=== PATIENT | male | born 1985 | race Caucasian/White ===

== ENCOUNTER 2022-02-06 17:31 | Emergency (ER) | payer MEDICAID ==
[~2022-02-06] VITALS: Ht 162.6 cm; Wt 63.5 kg
--- NOTE | 2022-02-06 17:36 | NUR ---
TO ER BED 4, C/O CHEST PAIN SINCE 1499, AAOX3, BREATHING EVEN AND NON LABORED, CONNECTED TO MONITOR, AWAITING MD LANDIS
[2022-02-06] MEDS ORDERED: IBUPROFEN 600 MG TABLET PO ONE (18:00)
[2022-02-06] MEDS ORDERED: IBUPROFEN 600 MG TABLET ONE (18:20)
[2022-02-06 18:55] VITALS: BP 136/98
--- NOTE | 2022-02-06 18:55 | NUR ---
Patient discharged to home in stable condition. Written and verbal after care instructions given. Patient verbalizes understanding of instruction.
== END 2022-02-06 18:56 | disposition home or self-care (01) ==
LOC: ER 17:36
DX: R07.89 Other chest pain (principal)
CPT/HCPCS: 71045-TC

== ENCOUNTER 2022-02-06 21:18 | Inpatient (IN) | payer MEDICAID ==
[~2022-02-06] VITALS: Ht 160 cm; Wt 68.0 kg
--- NOTE | 2022-02-06 21:47 | NUR ---
PER POISON CONTROL MONITOR 4-[address] AND LOW BP BASIC LABS MENTAL STATUS
[2022-02-06] MEDS ORDERED: ONDANSETRON HCL/PF 4 MG/2 ML VIAL IV ONE (22:00)
[2022-02-06 22:11] LABS: BASOPHILS % (AUTO) 0.4 % (0.0-2.0); EOSINOPHILS % (AUTO) 1.9 % (0.0-6.0); HEMATOCRIT 43 % (39-51); HEMOGLOBIN 14.5 g/dL (13.5-17.5); LYMPHOCYTES # (AUTO) 2.4 K/uL (0.8-4.8); LYMPHOCYTES % (AUTO) 24.6 % (20.0-44.0); MEAN CORPUSCULAR HGB CONC 33 g/dl (31.0-36.0); MEAN CORPUSCULAR VOLUME 90 fL (80-96); NEUTROPHILS # (AUTO) 6.2 K/uL (1.8-8.9); NEUTROPHILS % (AUTO) 63.1 % (43.0-81.0); PLATELET COUNT (AUTO) 229 K/uL (150-450); RED BLOOD CELL COUNT(AUTO) 4.82 MIL/uL (4.5-6.0); WHITE BLOOD COUNT (AUTO) 9.8 K/uL (4.3-11.0)
[2022-02-06] MEDS ORDERED: ONDANSETRON HCL/PF 4 MG/2 ML VIAL ONE (22:12)
[2022-02-06] MEDS ORDERED: LORAZEPAM INJ 2 MG/ML VIAL ONE (22:16)
[2022-02-06 22:24] LABS: ALANINE AMINOTRANSFERASE 55 U/L (12-78); ALBUMIN 4.1 g/dL (3.4-5.0); ALCOHOL, BLOOD < 3 mg/dL (0-0); ALKALINE PHOSPHATASE 146 U/L (46-116); ASPARTATE AMINOTRANSFERASE 30 U/L (15-37); BILIRUBIN,DIRECT 0.1 mg/dL (0.0-0.2); BILIRUBIN,TOTAL 0.2 mg/dL (0.2-1.0); CALCIUM, SERUM 9.3 mg/dL (8.5-10.1); CARBON DIOXIDE 26 mmol/L (21-32); CHLORIDE 102 mmol/L (98-107); CREATININE 1.5 mg/dL (0.6-1.3); GLUCOSE 150 mg/dL (74-106); POTASSIUM 3.6 mmol/L (3.5-5.1); SODIUM SERUM 140 mmol/L (136-145); TOTAL PROTEIN, SERUM 8.1 g/dL (6.4-8.2); UREA NITROGEN, BLOOD 15 mg/dL (7-18)
--- NOTE | 2022-02-06 22:25 | NUR ---
COVID ANTIGEN SWAB COLLECTED AND SENT TO LAB
[2022-02-06 22:27] LABS: ACETAMINOPHEN 0 ug/ml (10-30)
[2022-02-06] MEDS ORDERED: LORAZEPAM INJ 2 MG/ML VIAL IV ONE ×2 (22:30)
[2022-02-06] MEDS ORDERED: IV NS 0.9% 1,000 ML BAG IV ONE (22:30)
--- NOTE | 2022-02-06 23:28 | NUR ---
EPIC PANEL PAGED
[2022-02-07] VITALS (14 sets, daily range): BP systolic 102–132; BP diastolic 52–83
[2022-02-07] MEDS ORDERED: LORAZEPAM INJ 2 MG/ML VIAL IV PRN (03:00)
[2022-02-07] MEDS ORDERED: ONDANSETRON HCL/PF 4 MG/2 ML VIAL IVP PRN (03:00)
[2022-02-07] MEDS: IV NS 0.9% 1,000 ML IV PRN ×3 (06:30→21:16)
--- NOTE | 2022-02-07 08:54 | NUR ---
REPORT GIVEN TO GÉNESIS VALADEZ FOR POLINA
--- NOTE | 2022-02-07 08:55 | NUR ---
PETROLOGY TEACHER AT BEDSIDE FOR BLOOD DRAW
--- NOTE | 2022-02-07 09:05 | NUR ---
WAITER/WAITRESS COUNTER NOTES RECEIVED PATIENT FROM ER 36Y/OLD MALE ON Dx OF DRUG OVERDOSE. PATIENT CONFUSED, TWITCHING EYES MUSCLES, UNABLE TO OPEN EYES, UNABLE TO VERBALIZE SELF, STARTED INFUSING NS@75ML/HR, PATIENT MOUTH IS VERY DRY, SKIN ASSESSMENT DONE INTACT. IV ACCESS ON LEFT AND RIGHT WRIST INTACT. T-98.8F, P-100, R-20, O2-92% WITH NC2L, BP-127/68. CHECKED PATIENT BELONGING, PATIENT UNABLE TO SIGN PAPERWORK BECAUSE OF CONDITION. SEEN HOSPITALIST Dr CANDELARIA, GET VERBAL ORDER PSYCH CONSULT, AND NOTIFY POISON CONTROL FOR DRUG OVERDOSE FOLLOW UP. ORDER TAKEN AND CARRIED OUT. CALL LIGHT WITHIN TO REACH, BED LACK, BED ALARM ON. SIDE RAILS X4 UP, SAFETY PRECAUTION MAINTAINING ALL THE TIME.
--- NOTE | 2022-02-07 09:23 | NUR ---
TRANSFERRED TO BED 113 IN STABLE CONDITION
[2022-02-07 09:26] LABS: CALCIUM, SERUM 8.4 mg/dL (8.5-10.1); CREATININE 1.1 mg/dL (0.6-1.3); MAGNESIUM 2.1 mg/dL (1.8-2.4); PHOSPHORUS 3.9 mg/dL (2.5-4.9); POTASSIUM 3.7 mmol/L (3.5-5.1)
[2022-02-07 10:00] LABS: BASOPHILS % (AUTO) 0.1 % (0.0-2.0); EOSINOPHILS % (AUTO) 0.4 % (0.0-6.0); HEMATOCRIT 42 % (39-51); HEMOGLOBIN 13.7 g/dL (13.5-17.5); LYMPHOCYTES # (AUTO) 0.6 K/uL (0.8-4.8); LYMPHOCYTES % (AUTO) 16.6 % (20.0-44.0); MEAN CORPUSCULAR HGB CONC 33 g/dl (31.0-36.0); MEAN CORPUSCULAR VOLUME 90 fL (80-96); MONOCYTES # (AUTO) 0.6 K/uL (0.1-1.30); MONOCYTES % (AUTO) 15.4 % (2.0-12.0); NEUTROPHILS # (AUTO) 2.6 K/uL (1.8-8.9); NEUTROPHILS % (AUTO) 67.5 % (43.0-81.0); PLATELET COUNT (AUTO) 146 K/uL (150-450); RED BLOOD CELL COUNT(AUTO) 4.63 MIL/uL (4.5-6.0); WHITE BLOOD COUNT (AUTO) 3.9 K/uL (4.3-11.0)
--- NOTE | 2022-02-07 10:00 | NUR ---
rn notes called poison control, spoken to the personnel Jorgito, no new order will call them if patient has and new signa adn symptoms.
--- NOTE | 2022-02-07 11:05 | NUR ---
rn notes seen patient via psychologist Dr Mello, new order is follow up.
[2022-02-07 13:56] LABS: BAND % (MANUAL) 6 % (0.0-5.0); EOSINOPHILS % (MANUAL) 5 % (0-4); LYMPHOCYTES % (MANUAL) 21 % (16-48); MONOCYTES % (MANUAL) 7 % (0-11.0); NEUTROPHILS % (MANUAL) 61 (42-76)
[2022-02-07] MEDS: ACETAMINOPHEN 325 MG TABLET PO PRN (14:25)
--- NOTE | 2022-02-07 14:26 | NUR ---
RN NOTES T--102.9F ADMINISTERED -TYLENOL 650 MG/ML, AND COOLING MEASURE. WILL FOLLOW UP.
--- NOTE | 2022-02-07 14:57 | NUR ---
RN NOTES PATIENT KEEP TRYING TO GET OUT OF BED, HIGH FALL RISK, GET ORDER VIA HOSPITALIST WRIST RESTRAIN. ORDER TAKEN AND CARRIED OUT.
--- NOTE | 2022-02-07 15:42 | NUR ---
RN NOTES PATIENT VERY ANXIOUS, CONFUSED, HARD TO FOLLOW DIRECTION, REMOVING TUBING, AND TRYING TO GET OUT OF BED, HIGH FALL RISK ADMINISTERED ATIVAN 2 MG/ML IV PUSH, BP 120/58, T-103F, P- 123, O2-86%.
--- NOTE | 2022-02-07 15:56 | NUR ---
PATIENT CONFUSED, HARD TO FOLLOW DIRECTION, GET VERBAL ORDER 1:1 SITTER.
--- NOTE | 2022-02-07 17:10 | NUR ---
rn notes put simple face mask on 8l O2- 81% to 84%, unable to urinate inserted benavides catheter, t-102.2 f, get order blood culture x2 per Dr Recinos. patient stil confused. will monitoring.
--- NOTE | 2022-02-07 17:57 | NUR ---
rn notes patient o2-81% to 86% with simple face mask , changed to the non- rebreather mask, and get order of stat ABG.
--- NOTE | 2022-02-07 18:17 | NUR ---
RN NOTES PATIENT T-102.2 F, UNABLE TO URINATE SINCE THIS MORNING INSERTED BEDOYA CATHETER OUTPUT WAS 800ML. O2-81/84% APPLIED PATIENT NON- REBREATHER MASK, AND STAT ABG .
--- NOTE | 2022-02-07 18:27 | NUR ---
RN NOTES ABG RESULT NOTIFIED DR CASTRO AND GET NEW ORDER TO TRANSFER PATIENT ICU FOR CLOSE MONITORING , START ZOSYN 4,5 GM IV Q8HR, FIRST DOSE START NOW, REPEAT ABG AFTER 2 HR, AND GET STAT CHEST X-RAY. ORDER TAKEN AND CARRIED OUT.
--- NOTE | 2022-02-07 18:40 | NUR ---
rn notes transferred patient to the icu per Dr Cool's order on ACLS PROTOCOL. BEDSIDE REPORT GIVEN RN FOLLOW UP POLINA. NEW ORDERS TAKEN, AND CARRIED OUT.
[2022-02-07 18:49] LABS: ABG BASE EXCESS -2.6 mmol/L; ABG PCO2 30.8 mmHg (35.0-45.0); ABG PO2 56.1 mmHg (75.0-100.0); AaDO2 626.1 mmHg; COHb 0.5 % (0.5-1.5); MetHb 0.4 % (0.0-1.5); O2Hb 87.2 % (94.0-97.0); SITE, ABG Right Radial; VENT MODE, BG 15L NRB
--- NOTE | 2022-02-07 18:55 | NUR ---
rn notes called poison control and spoke personnel name Krystina. Notified patient change of condition, per personnel because of patient has gabapentin poisoning no specific recommendation at this time, follow up ICU, and call if some changes.
[2022-02-07 20:17] LABS: ABG BASE EXCESS -3.1 mmol/L; ABG OXYGEN SATURATION 88.1 % (92.0-98.5); ABG PCO2 33.7 mmHg (35.0-45.0); ABG PH 7.407 (7.350-7.450); ABG PO2 56.8 mmHg (75.0-100.0); AaDO2 622.5 mmHg; COHb 0.4 % (0.5-1.5); MetHb 0.3 % (0.0-1.5); O2Hb 87.5 % (94.0-97.0); SITE, ABG Right Radial; VENT MODE, BG 15LNRB
[2022-02-07] MEDS: PIPERACILLIN /TAZOBACTAM 4.5 G in IV D5W 50 ML IV SCH (21:10)
--- NOTE | 2022-02-07 21:45 | NUR ---
RN NOTE PT RESTLESS NOT FOLLOWING ANY COMMANDS. WITH YOLANDA WRIST RESTRAINTS WITH SITTER AT BEDSIDE. TEMP 102.2. PRECIOUS BOLIVAR CAME TO SEE PT.
[2022-02-07] MEDS: VANCOMYCIN 1 GM in IV D5W 250 ML IV SCH (21:54)
[2022-02-07] MEDS: ACETAMINOPHEN 650 MG/SUPP.RECT RC PRN (22:24)
--- NOTE | 2022-02-07 22:50 | NUR ---
RT placed on hhfnc due to low spo2 on nrb. sat 70-90%. abg done at 1930. spo2 on hhfnc 88-90%. placed on hhfnc + nrb. sat 94%. abg to follow
[2022-02-08] VITALS (82 sets, daily range): BP systolic 74–113; BP diastolic 48–73
[2022-02-08] MEDS: ENOXAPARIN SODIUM 40 MG/0.4 ML DISP.SYRIN SQ SCH ×2 (00:04→22:01)
[2022-02-08] MEDS ORDERED: PROPOFOL 100 ML IV PRN (01:00)
--- NOTE | 2022-02-08 01:00 | NUR ---
RN NOTE REPEAT ABG RESULTS RELAYED TO PRECIOUS BOLIVAR WITH ORDER TO INTUBATE PT. PT NOT IN DISTRESS. ER MD CAME, INTUBATED PT, RTS AT BEDSIDE, VENT SETTINGS AC 20 TV 550 FIO2 100% P 8. CXRAY DONE. WILL CONTINUE TO MONITOR.
--- NOTE | 2022-02-08 01:18 | NUR ---
RT pt intubated post abg results. intubated with ett size 7.5 at 23@lip. vent settings AC 20 550 100% +8. vent plugged in to red outlet. ambu bag at bedside. small pink tinged secretions suctioned via ett. lung sounds clear diminished throughout. abg to follow.
--- NOTE | 2022-02-08 02:40 | NUR ---
RN NOTE POST INTUBATION ABG RESULTS RELAYED TO PRECIOUS BOLIVAR. NO NEW ORDER MADE AT THIS TIME.
[2022-02-08] MEDS: PIPERACILLIN /TAZOBACTAM 4.5 G in IV D5W 50 ML IV SCH (04:44)
[2022-02-08] MEDS: PROPOFOL 100 ML IV PRN ×7 (04:45→21:14)
[2022-02-08 05:11] LABS: BASOPHILS % (AUTO) 0.2 % (0.0-2.0); EOSINOPHILS % (AUTO) 0.5 % (0.0-6.0); HEMATOCRIT 39 % (39-51); HEMOGLOBIN 12.9 g/dL (13.5-17.5); LYMPHOCYTES # (AUTO) 0.9 K/uL (0.8-4.8); LYMPHOCYTES % (AUTO) 16.8 % (20.0-44.0); MEAN CORPUSCULAR HGB CONC 33 g/dl (31.0-36.0); MEAN CORPUSCULAR VOLUME 89 fL (80-96); MONOCYTES # (AUTO) 0.1 K/uL (0.1-1.30); MONOCYTES % (AUTO) 2.8 % (2.0-12.0); NEUTROPHILS # (AUTO) 4.2 K/uL (1.8-8.9); NEUTROPHILS % (AUTO) 79.7 % (43.0-81.0); PLATELET COUNT (AUTO) 140 K/uL (150-450); RED BLOOD CELL COUNT(AUTO) 4.32 MIL/uL (4.5-6.0); WHITE BLOOD COUNT (AUTO) 5.3 K/uL (4.3-11.0)
[2022-02-08 05:32] LABS: CREATININE 1.1 mg/dL (0.6-1.3); MAGNESIUM 1.8 mg/dL (1.8-2.4); PHOSPHORUS 3.9 mg/dL (2.5-4.9); POTASSIUM 3.9 mmol/L (3.5-5.1)
--- NOTE | 2022-02-08 06:00 | NUR ---
RN NOTE PT CONTINUE WITH VENT SETTINGS AC 20 TV 550 FIO2 100% P 5. TACHYPNEIC, SEDATED WITH PROPOFOL, TITRATED PER PROTOCOL. OGT INSERTED BY CHARGE NURSE, AWAITING FOR XRAY RESULTS. BEDOYA DRAINING URINE BY GRAVITY, WILL CONTINUE TO MONITOR.
--- NOTE | 2022-02-08 07:05 | NUR ---
STRUCTURER OPENING NOTE: RECEIVED PT. IN BED, SEDATED, RESPONDS TO TACTILE AND PAINFUL STIMULI. ON VENT WITH ETT - 7.5/23; AC - 20; VT - 550; FIO2 - 100; PEEP - 8. CHEST RISING SYMMETRICALLY. TACHYPNEIC AT 36 BREATHS/MIN. PT. HAD NG TUBE, X-RAY SHOWS WRONG PLACEMENT, REMOVED. RECRUITER COORDINATOR READS SINUS TACH AT 112 BPM AT THIS TIME. ON BEDOYA CATH, WITH CLOUDY TEA-COLORED URINE NOTED, PLACED BELOW BLADDER. SKIN INTACT. IV ACCESS ON ALAN MIDLINE WITH NS RUNNING AT 75ML/HR; PROPOFOL AT 80MCG/KG/MIN; R HAND #18G AND L WRIST #18G, PATENT AND SALINE LOCKED. IV DRESSINGS C/D/I WITH NO S/S OF INFILTRATION. SAFETY MEASURES IN PLACE: BED IN LOWEST AND LOCKED POSITION, HOB ELEVATED AT 30 DEGREES, BED ALARM ON, ON SOFT BILATERAL WRIST RESTRAINTS, PALPABLE PULSES NOTED ON ALL EXTREMITIES AND CAP REFILL < 3 SECS.; CALL LIGHT WITHIN REACH, SIDE RAILS UPX3. WILL REPOSITION AT LEAST Q2H AND CONTINUE TO MONITOR FOR ANY CHANGES.
--- NOTE | 2022-02-08 07:10 | NUR ---
RN NOTE OGT NOT IN PLACE, REMOVED TUBE, ENDORSED TO AM SHIFT NURSE.
[2022-02-08] MEDS: IV NS 0.9% 1,000 ML IV PRN (07:26)
[2022-02-08] MEDS ORDERED: SUCCINYLCHOLINE CHLORIDE 20 MG/ML VIAL IV ONE (08:06)
[2022-02-08] MEDS ORDERED: ETOMIDATE 2 MG/ML VIAL IV ONE (08:06)
[2022-02-08 08:39] LABS: ABG BASE EXCESS -2.2 mmol/L; ABG OXYGEN SATURATION 77.3 % (92.0-98.5); ABG PCO2 35.1 mmHg (35.0-45.0); ABG PO2 42.7 mmHg (75.0-100.0); AaDO2 635.2 mmHg; COHb 0.5 % (0.5-1.5); MetHb 0.3 % (0.0-1.5); O2Hb 76.7 % (94.0-97.0); SITE, ABG Right Radial; VENT MODE, BG HFNC 100% 40L + NRB 15L
[2022-02-08 08:39] LABS: ABG BASE EXCESS -2.1 mmol/L; ABG OXYGEN SATURATION 83.8 % (92.0-98.5); ABG PCO2 36.4 mmHg (35.0-45.0); ABG PH 7.402 (7.350-7.450); ABG PO2 49.7 mmHg (75.0-100.0); AaDO2 626.9 mmHg; COHb 0.4 % (0.5-1.5); MetHb 0.3 % (0.0-1.5); O2Hb 83.2 % (94.0-97.0); PEEP,BG 8 cm H2O; SITE, ABG Left Radial
[2022-02-08 08:39] LABS: ABG BASE EXCESS -1.2 mmol/L; ABG OXYGEN SATURATION 86.9 % (92.0-98.5); ABG PCO2 34.5 mmHg (35.0-45.0); ABG PH 7.431 (7.350-7.450); ABG PO2 53.6 mmHg (75.0-100.0); AaDO2 624.9 mmHg; COHb 0.6 % (0.5-1.5); MetHb 0.1 % (0.0-1.5); O2Hb 86.3 % (94.0-97.0); SITE, ABG Left Radial; VENT MODE, BG AC 20 500 100% +8
[2022-02-08] MEDS: VANCOMYCIN 1 GM in IV D5W 250 ML IV SCH ×2 (09:30→20:43)
[2022-02-08 09:35] LABS: BAND % (MANUAL) 10 % (0.0-5.0); LYMPHOCYTES % (MANUAL) 18 % (16-48); MONOCYTES % (MANUAL) 7 % (0-11.0); NEUTROPHILS % (MANUAL) 65 (42-76)
[2022-02-08] MEDS: FENTANYL CITRAT IV 2,500 MCG in IV NS 0.9% 200 ML IV PRN (11:10)
[2022-02-08] MEDS ORDERED: MORPHINE SULFATE INJ 2 MG/ML DISP.SYRIN IV ONE (11:30)
--- NOTE | 2022-02-08 13:00 | NUR ---
HYDROGEN CELL TENDER NOTE: SPOKE WITH KRISTINE OF POISON CONTROL. SUGGESTED ORDERS WHEN REPEAT EKG RESULT IS OBTAINED. SUGGESTED ORDER: IF QTC > 500, ORDER 1-2 G OF MAGNESIUM IF QRS >120, ORDER SODIUM BICARB. IF QTC IS PROLONGED, GOAL FOR MAG LEVEL IS >2 AND POTASSIUM >4. WILL NOTIFY MD AND DYNAMITE PACKING MACHINE FEEDER RN.
[2022-02-08 13:22] LABS: ALBUMIN 2.3 g/dL (3.4-5.0); BILIRUBIN,DIRECT 0.1 mg/dL (0.0-0.2); BILIRUBIN,TOTAL 0.4 mg/dL (0.2-1.0); TOTAL PROTEIN, SERUM 5.6 g/dL (6.4-8.2)
[2022-02-08] MEDS: PIPERACILLIN /TAZOBACTAM 3.375 G in IV D5W 100 ML IV SCH ×2 (13:42→22:00)
--- NOTE | 2022-02-08 14:21 | NUR ---
vent changes below per dr. lowry: peep +16 reverse I:E ratio (2:1) Addendum: 02/08/22 at 1422 by JULISSA HEREDIA RT Amended: Links added.
--- NOTE | 2022-02-08 16:30 | NUR ---
FRAME COVERER NOTE: EDDIE Tanner OF [facility] CALLED TO REPORT THAT PT. IS POSITIVE FOR MRSA FROM THE RIGHT NARE. WILL IMPLEMENT CONTACT ISOLATION FROM NOW ON.
[2022-02-08] MEDS: ACETAMINOPHEN 650 MG/SUPP.RECT RC PRN (17:12)
--- NOTE | 2022-02-08 18:30 | NUR ---
ENTRY WRITER NOTE: SPOKE WITH PT.'S MOTHER. TYRESE ESPINOZA, PHONE , BASED IN [place]. UPDATED MOTHER ON PT.'S CONDITION AND GOT PT.'S MEDICAL HISTORY. CHART UPDATED. WAS TOLD THAT PT.'S LIST OF MEDICATIONS CAN BE OBTAINED FROM [facility], PHONE [phone] AND/OR [facility], PHONE . WILL ENDORSE TO MANAGER TRAINING RN AND MED RECON NURSE.
--- NOTE | 2022-02-08 19:20 | NUR ---
ROLL TUBE SETTER CLOSING NOTE: PT. REMAINS IN BED, SEDATED, RESPONDS TO TACTILE AND PAINFUL STIMULI. ON VENT WITH ETT - 7.5/23; AC - 20; VT - 500; FIO2 - 100; PEEP - 16; I:E RATIO AT 2:1. CHEST RISING SYMMETRICALLY, SATURATING AT 93% AT THIS TIME. NOW BREATHING AT 20 BREATHS/MIN. SCHOOL COMMUNITY RELATIONS COORDINATOR READS SINUS TACH AT 118 BPM AT THIS TIME. ON BEDOYA CATH, WITH CLOUDY TEA-COLORED URINE OUTPUT OF 525 ML THIS SHIFT. SKIN INTACT. IV ACCESS ON ALAN PICC LINE WITH NS RUNNING AT 75ML/HR; PROPOFOL AT 100 MCG/KG/MIN; FENTANYL AT 150 MCG/HR; R HAND #18G AND L WRIST #18G, PATENT AND SALINE LOCKED. IV DRESSINGS C/D/I WITH NO S/S OF INFILTRATION. PT.'S MOTHER, TYRESE ESPINOZA CALLED FOR UPDATES AND GAVE PT.'S MEDICAL HISTORY, CHART UPDATED. PT. SPIKED A FEVER AT 1600, TYLENOL SUPP GIVEN, FEVER WENT DOWN AND WENT UP AGAIN AT 1900. COOLING MEASURES APPLIED. SAFETY MEASURES MAINTAINED: BED IN LOWEST AND LOCKED POSITION, HOB ELEVATED AT 30 DEGREES, BED ALARM ON, ON SOFT BILATERAL WRIST RESTRAINTS, PALPABLE PULSES NOTED ON ALL EXTREMITIES AND CAP REFILL < 3 SECS.; CALL LIGHT WITHIN REACH, SIDE RAILS UPX3. REPOSITIONED AT LEAST Q2H AND ENDORSED CONTINUITY OF CARE TO RIVER RAT RN.
[2022-02-08] MEDS ORDERED: NOREPINEPHRINE 8MG/250ML RTU 250 ML IV ONE (19:35)
[2022-02-08] MEDS: NOREPINEPHRINE 8 MG in IV NS 0.9% 242 ML IV PRN (19:40)
--- NOTE | 2022-02-08 20:00 | NUR ---
RN NOTE RECEIVED PT ORALLY INTUBATED CONNECTED TO VENT. NO SIGNS OF DISTRESS NOTED. LEVOPHED STARTED DUE TO LOW BP, WILL TITRATE PER PROTOCOL. SEDATED ON PROPOFOL AND FENTANYL. DRIPS INFUSING WELL, PICC LINE PATENT AND INTACT. FC DRAINING URINE BY GRAVITY. WILL CONTINUE TO MONITOR.
[2022-02-08 22:14] LABS: ABG BASE EXCESS -2.1 mmol/L; ABG OXYGEN SATURATION 75.8 % (92.0-98.5); ABG PCO2 45.6 mmHg (35.0-45.0); ABG PH 7.338 (7.350-7.450); ABG PO2 44.1 mmHg (75.0-100.0); AaDO2 623.3 mmHg; MetHb 0.2 % (0.0-1.5); O2Hb 75.6 % (94.0-97.0); SITE, ABG Right Radial; VENT MODE, BG AC 20 500 +12 100%
--- NOTE | 2022-02-08 22:45 | NUR ---
RN NOTE PT POSITIVE WITH MRSA NARES. NOTIFIED FREIGHT CLAIM INVESTIGATOR KATT WITH NEW ORDER OF BACTROBAN OINTMENT. ORDER NOTED AND CARRIED OUT.
--- NOTE | 2022-02-08 23:20 | NUR ---
RT NOTE SPUTUM OBTAINED. SMALL WHITE THIN SECRETIONS NOTED.
[2022-02-09] VITALS (93 sets, daily range): BP systolic 80–129; BP diastolic 36–79
[2022-02-09] MEDS: IV NS 0.9% 1,000 ML IV PRN ×2 (00:16→12:05)
[2022-02-09] MEDS: PROPOFOL 100 ML IV PRN ×9 (00:16→22:25)
[2022-02-09] MEDS ORDERED: NOREPINEPHRINE 8MG/250ML RTU 250 ML IV ONE (01:19)
[2022-02-09] MEDS: NOREPINEPHRINE 8 MG in IV NS 0.9% 242 ML IV PRN ×2 (01:45→05:15)
[2022-02-09] MEDS: FENTANYL CITRAT IV 2,500 MCG in IV NS 0.9% 200 ML IV PRN (02:43)
[2022-02-09] MEDS ORDERED: NOREPINEPHRINE 4 MG/4 ML AMPUL IV ONE (04:38)
[2022-02-09] MEDS: PIPERACILLIN /TAZOBACTAM 3.375 G in IV D5W 100 ML IV SCH ×3 (04:42→20:30)
[2022-02-09 05:28] LABS: CALCIUM, SERUM 8.3 mg/dL (8.5-10.1); CREATININE 1.5 mg/dL (0.6-1.3); POTASSIUM 4.7 mmol/L (3.5-5.1)
--- NOTE | 2022-02-09 07:15 | NUR ---
RN NOTE PT CONTINUE WITH VENT SETTINGS. NOT IN DISTRESS. REMAIN SEDATED WITH FENTANY AND PROPOFOL. LEVOPHED AT 0.4 MCG/KG/MIN. NS AT 75ML.HR. NO SIGNS OF INFILTRATION NOTED. BEDOYA CATH IN PLACE AND DRAINING WELL. LOW GRADE FEVER ON SHIFT.
--- NOTE | 2022-02-09 07:35 | NUR ---
ICU/RN PT RECEIVED IN BED, SEDATED. PT INTUBATED ON MECHANICAL VENTILATOR 7.5/23, AC 20, TV 500, PEEP OF 16 AND FIO2 100%, SAT 98% ON BEDSIDE MONITOR. RIGHT UA PICC, RIGHT HAND 18G AND LEFT WRIST 18G IN PLACE RUNNING NS AT 75ML/HR, LEVOPHED AT 0.4MCG/KG/MIN, PROPOFOL AT 90MCG/KG/MIN AND FENTANYL AT 100 MCG/HR. BP 99/56, RR 21 AND HR 101. BED LOCKED AND IN LOWEST POSITION, CALL LIGHT WITHIN REACH, 3 SIDE RAILS UP.
--- NOTE | 2022-02-09 08:36 | NUR ---
vent changes below per dr. lowry: vt 525 ml rate 30 bpm rn notified on above changes Addendum: 02/09/22 at 0837 by JULISSA HEREDIA RT Amended: Links added.
[2022-02-09] MEDS: MUPIROCIN OINT 2% 22 GM TUBE NS SCH ×2 (09:00→20:32)
[2022-02-09 09:05] LABS: ABG BASE EXCESS -6.1 mmol/L; ABG PCO2 80.1 mmHg (35.0-45.0); ABG PH 7.112 (7.350-7.450); ABG PO2 94.1 mmHg (75.0-100.0); AaDO2 538.8 mmHg; COHb 0.3 % (0.5-1.5); MetHb 0.3 % (0.0-1.5); O2Hb 95.4 % (94.0-97.0); PEEP,BG 16 cm H2O; SITE, ABG Right Brachial; VT, ABG 500 mL
[2022-02-09] MEDS: VANCOMYCIN 1 GM in IV D5W 250 ML IV SCH ×2 (09:05→20:19)
[2022-02-09 09:07] LABS: BASOPHILS % (AUTO) 0.2 % (0.0-2.0); EOSINOPHILS % (AUTO) 1.5 % (0.0-6.0); HEMATOCRIT 39 % (39-51); HEMOGLOBIN 12.9 g/dL (13.5-17.5); LYMPHOCYTES # (AUTO) 0.8 K/uL (0.8-4.8); LYMPHOCYTES % (AUTO) 8.9 % (20.0-44.0); MEAN CORPUSCULAR HGB CONC 33 g/dl (31.0-36.0); MEAN CORPUSCULAR VOLUME 91 fL (80-96); MONOCYTES # (AUTO) 0.1 K/uL (0.1-1.30); MONOCYTES % (AUTO) 1.6 % (2.0-12.0); NEUTROPHILS % (AUTO) 87.8 % (43.0-81.0); PLATELET COUNT (AUTO) 154 K/uL (150-450); WHITE BLOOD COUNT (AUTO) 9.2 K/uL (4.3-11.0)
[2022-02-09] MEDS ORDERED: IV NS 0.9% 500 ML IV ONE (09:30)
[2022-02-09 09:45] LABS: BILIRUBIN,TOTAL 0.5 mg/dL (0.2-1.0); CALCIUM, SERUM 8.3 mg/dL (8.5-10.1); CREATININE 1.5 mg/dL (0.6-1.3); POTASSIUM 5.1 mmol/L (3.5-5.1); TOTAL PROTEIN, SERUM 5.9 g/dL (6.4-8.2)
--- NOTE | 2022-02-09 10:05 | NUR ---
fio2 titration due to 98% spo2 80% fio2 Addendum: 02/09/22 at 1006 by JULISSA HEREDIA RT Amended: Links added.
[2022-02-09] MEDS: NOREPINEPHRINE 32 MG in IV NS 0.9% 242 ML IV PRN (10:52)
--- NOTE | 2022-02-09 11:00 | NUR ---
ICU/RN NGT PLACED IN LEFT NARE, 60CM READING AT THE TIP OF THE NOSE. AWAITING FOR CXR TO CONFIRM PLACEMENT.
--- NOTE | 2022-02-09 11:36 | NUR ---
ICU/RN UPDATED PT'S FATHER SUAD ([phone]) ON PT'S CONDITION
[2022-02-09 12:01] LABS: ABG BASE EXCESS -4.2 mmol/L; ABG OXYGEN SATURATION 96.6 % (92.0-98.5); ABG PCO2 63.6 mmHg (35.0-45.0); ABG PH 7.208 (7.350-7.450); ABG PO2 91.4 mmHg (75.0-100.0); COHb 0.3 % (0.5-1.5); MetHb 0.3 % (0.0-1.5); PEEP,BG 16 cm H2O; SITE, ABG Right Brachial; VT, ABG 525 mL
[2022-02-09] MEDS: JEVITY 1.2 CAL 1,000 ML BOTTLE GT PRN (13:55)
--- NOTE | 2022-02-09 15:16 | NUR ---
ICU/RN PT'S MOTHER TYRESE ([phone]) AT BEDSIDE, UPDATED ON PT'S CONDITION. TYRESE CONFIRMED SHE IS NEXT OF KIN, NO SPOUSE OR CHILDREN OVER THE AGE OF 18 TO MAKE DECISION FOR PT.
--- NOTE | 2022-02-09 15:19 | NUR ---
ICU/RN PT'S MOTHER MENTIONS PT HAD A PRESCRIPTION FOR SEROQUEL, VERBALIZES SHE BELIEVES IT COULD BE A REASON FOR HIS OVERDOSE.
[2022-02-09] MEDS: ACETAMINOPHEN 325 MG TABLET PO PRN (16:12)
--- NOTE | 2022-02-09 16:21 | NUR ---
ICU/RN TEMP OF 100.9. COOLING MEASURES IMPLEMENTED, TYLENOL GIVEN.
--- NOTE | 2022-02-09 19:10 | NUR ---
MULTIGRAPHER NOTES PATIENT RECEIVED ON BED, SEDATED, INTUBATED, SIZE 7.5 AND 23 CM BY THE LIP. ON MECHANICAL VENTILATOR WITH SETTING AC- 30, TV- 525, FIO2- 80%, PEEP- 16 SATING AT 99%, RECEIVED WITH TEMPERATURE 101.2 FAHRENHEIT, COOLING MEASURE PROVIDED. V/S TAKEN AND RECORDED. WITH ALAN PICC LINE, RIGHT HAND # 18, LEFT ERIST # 18 PERIPHERAL LINE, PATENT AND INTACT, FLUSHED WITH NS, RUNNING WITH NS @ 75 ML/HR, PROPOFOL @ 90 MCG/KG/MIN, LEVO @ 0.4 MCG/KG/MIN, FENTANYL @ 100 MCG/HR. NGT @ LEFT NARE, PATENT AND INTACT, VERIFIED PLACEMENT BY AUSCULTATION, NOTED WITH 5ML RESIDUAL UPON ASPIRATION, FLUSHED WITH WATER. RUNNING WITH JEVITY 1.2 @ 20 ML/HR. BEDOYA CATHETER PATENT AND INTACT, DRAINING CLEAR YELLOW URINE VIA GRAVITY. NOTED WITH BILATERAL SOFT WRIST RESTRAINT, RELEASE AND REASSESS Q2HRS, FOR CIRCULATION. ALL SAFETY PRECAUTION PROVIDED. BED IN LOWEST PROSITION, LOCKED. CALL LIGHT WITH IN REACH. CONTINUE TO MONITOR
[2022-02-09] MEDS: IV NS 0.9% 250 ML IV PRN (20:55)
[2022-02-09] MEDS: ENOXAPARIN SODIUM 40 MG/0.4 ML DISP.SYRIN SQ SCH (21:00)
[2022-02-10] VITALS (92 sets, daily range): BP systolic 88–131; BP diastolic 33–72
[2022-02-10] MEDS: ACETAMINOPHEN 325 MG TABLET PO PRN (00:08)
--- NOTE | 2022-02-10 00:11 | NUR ---
RN NOTES PATIENT NOTED WITH TEMPERATURE 100.6 F, COOLING MEASURE PROVIDED, ACETAMINOPHEN 650MG GIVEN, CONTINUE TO MONITOR.
--- NOTE | 2022-02-10 00:45 | NUR ---
RN NOTES TEMPERATURE RECHECKED AND OBTAINED 100.1 F, CONTINUE COOLING MEASURE. CONTINUE TO MONITOR.
[2022-02-10] MEDS: PROPOFOL 100 ML IV PRN ×6 (03:06→18:52)
[2022-02-10] MEDS: IV NS 0.9% 1,000 ML IV PRN ×2 (03:17→16:00)
[2022-02-10] MEDS: PIPERACILLIN /TAZOBACTAM 3.375 G in IV D5W 100 ML IV SCH ×3 (04:48→22:00)
[2022-02-10] MEDS: FENTANYL CITRAT IV 2,500 MCG in IV NS 0.9% 200 ML IV PRN (05:25)
[2022-02-10] MEDS ORDERED: NOREPINEPHRINE 4 MG/4 ML AMPUL IV ONE (05:27)
[2022-02-10] MEDS: NOREPINEPHRINE 32 MG in IV NS 0.9% 242 ML IV PRN (05:38)
[2022-02-10 05:46] LABS: CALCIUM, SERUM 8.5 mg/dL (8.5-10.1); CREATININE 1.5 mg/dL (0.6-1.3); POTASSIUM 4.7 mmol/L (3.5-5.1)
--- NOTE | 2022-02-10 07:30 | NUR ---
RN OPENING NOTE PT RECEIVED IN BED WITH HOB >30 DEGREES AND ON MECHANICAL VENT WITH ALL PRESCRIBED SETTINGS TOLERATING WELL O2 SAT 98%. PT IS SEDATED AT THIS TIME. NGT IS IN PLACE WITH POSITIVE PLACEMENT INFUSING WITH JEVITY 1.2 @ 20ML/HR. IV ACCESS R UA PICC INFUSING WITH LEVO 0.4 MCG AND DIPRIVAN @ 80MCG AND FENTANYL @ 100MCG AND NS @75ML/HR. BED IS LOCKED IN LOWEST POSITION X2 BED RAILS UP AND ALL HOSPITAL SAFETY PRECAUTIONS ARE IN PLACE. WILL CONTINUE TO MONITOR THIS SHIFT.
[2022-02-10 09:32] LABS: ABG BASE EXCESS -4.2 mmol/L; ABG OXYGEN SATURATION 96.5 % (92.0-98.5); ABG PCO2 67.1 mmHg (35.0-45.0); ABG PO2 92.6 mmHg (75.0-100.0); AaDO2 261.4 mmHg; MetHb 0.4 % (0.0-1.5); O2Hb 96.1 % (94.0-97.0); SITE, ABG Left Radial; VENT MODE, BG AC 525 30 60% + 16
[2022-02-10] MEDS: VANCOMYCIN 1 GM in IV D5W 250 ML IV SCH ×2 (10:28→20:28)
[2022-02-10] MEDS: MUPIROCIN OINT 2% 22 GM TUBE NS SCH ×2 (10:29→20:23)
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
[2022-02-10 13:44] LABS: ABG BASE EXCESS -1.9 mmol/L; ABG OXYGEN SATURATION 88.1 % (92.0-98.5); ABG PCO2 42.9 mmHg (35.0-45.0); ABG PH 7.358 (7.350-7.450); ABG PO2 50.1 mmHg (75.0-100.0); AaDO2 330.5 mmHg; COHb 0.3 % (0.5-1.5); MetHb 0.1 % (0.0-1.5); O2Hb 87.7 % (94.0-97.0); SITE, ABG Left Radial
[2022-02-10] MEDS: MIDAZOLAM HCL 100 MG in IV NS 0.9% 80 ML IV PRN (17:48)
--- NOTE | 2022-02-10 20:15 | NUR ---
RT Pt received orally intubated w/ 7.5 ETT secured at 23CM at the lip line on [facility] vent on settings AC mode, rate 30, VT 525, FIO2 60%, PEEP +16, I:E 2:1. Airway patent and secured. SALES ENGINEER ENGINEERED PRODUCTS done. Pt suctioned. Alarms set and audible. Vent plugged into red outlet. Ambubag at bedside. Will cont to monitor. Addendum: 02/11/22 at 0243 by SANFORD LORA RT Amended: Links added.
[2022-02-10] MEDS: ENOXAPARIN SODIUM 40 MG/0.4 ML DISP.SYRIN SQ SCH (20:34)
[2022-02-11] VITALS (72 sets, daily range): BP systolic 119–151; BP diastolic 59–84
[2022-02-11] MEDS: ACETAMINOPHEN 325 MG TABLET PO PRN ×2 (00:48→09:02)
[2022-02-11] MEDS: NOREPINEPHRINE 32 MG in IV NS 0.9% 242 ML IV PRN (01:41)
[2022-02-11] MEDS: JEVITY 1.2 CAL 1,000 ML BOTTLE GT PRN (01:51)
[2022-02-11 04:37] LABS: CALCIUM, SERUM 9.1 mg/dL (8.5-10.1); CREATININE 1.3 mg/dL (0.6-1.3)
[2022-02-11] MEDS: PIPERACILLIN /TAZOBACTAM 3.375 G in IV D5W 100 ML IV SCH ×3 (05:31→21:59)
--- NOTE | 2022-02-11 07:39 | NUR ---
RN CLOSING NOTE PT RECEIVED IN BED WITH HOB >30 DEGREES AND ON MECHANICAL VENT WITH ALL PRESCRIBED SETTINGS TOLERATING WELL O2 SAT 98%. PT IS SEDATED AT THIS TIME. NGT IS IN PLACE WITH POSITIVE PLACEMENT INFUSING WITH JEVITY 1.2 @ 20ML/HR. IV ACCESS R UA PICC INFUSING WITH LEVO 0.4 MCG AND VERSED @ 2.0 MCG AND FENTANYL @ 100MCG AND NS @75ML/HR. BED IS LOCKED IN LOWEST POSITION X2 BED RAILS UP AND ALL HOSPITAL SAFETY PRECAUTIONS ARE IN PLACE. WILL ENDORSE TO DAY SHIFT NURSE FOR POLINA.
[2022-02-11] MEDS: IV NS 0.9% 1,000 ML IV PRN (07:49)
[2022-02-11 08:05] LABS: ABG BASE EXCESS -2.1 mmol/L; ABG OXYGEN SATURATION 92.9 % (92.0-98.5); ABG PH 7.274 (7.350-7.450); ABG PO2 69.3 mmHg (75.0-100.0); AaDO2 296.9 mmHg; COHb 0.3 % (0.5-1.5); MetHb 0.2 % (0.0-1.5); O2Hb 92.4 % (94.0-97.0); SITE, ABG Left Radial
[2022-02-11] MEDS: MUPIROCIN OINT 2% 22 GM TUBE NS SCH ×2 (08:05→21:18)
[2022-02-11] MEDS: FENTANYL CITRAT IV 2,500 MCG in IV NS 0.9% 200 ML IV PRN (08:11)
--- NOTE | 2022-02-11 09:17 | NUR ---
ICU/RN FEVER ONGOING AT 102F AT THIS TIME. COOLING BLANKET ON, TYLENOL GIVEN. PT'S MOTHER TYRESE AT BEDSIDE, UPDATED ON POC, IN AGREEMENT.
[2022-02-11] MEDS: VANCOMYCIN 1 GM in IV D5W 250 ML IV SCH ×2 (09:19→20:56)
--- NOTE | 2022-02-11 09:49 | NUR ---
ICU/RN PT O2 SAT 84-86%, RT NOTIFIED, FIO2 INCREASED TO 80%, SAT 96%
[2022-02-11] MEDS ORDERED: IV D5/ 0.9% NACL 1,000 ML IV SCH (12:00)
[2022-02-11] MEDS ORDERED: PANTOPRAZOLE 40 MG VIAL IV SCH (12:00)
[2022-02-11] MEDS ORDERED: JEVITY 1.2 CAL 1,000 ML BOTTLE NG PRN (12:00)
--- NOTE | 2022-02-11 12:00 | NUR ---
ICU/RN TUBE FEEDING INCREASED TO 30ML/HR.
[2022-02-11] MEDS: IV D5/ 0.9% NACL 1,000 ML IV PRN (12:35)
[2022-02-11 13:24] LABS: BASOPHILS % (AUTO) 0.4 % (0.0-2.0); EOSINOPHILS % (AUTO) 0.9 % (0.0-6.0); HEMATOCRIT 35 % (39-51); HEMOGLOBIN 11.1 g/dL (13.5-17.5); LYMPHOCYTES # (AUTO) 0.8 K/uL (0.8-4.8); LYMPHOCYTES % (AUTO) 6.9 % (20.0-44.0); MEAN CORPUSCULAR HGB CONC 32 g/dl (31.0-36.0); MEAN CORPUSCULAR VOLUME 91 fL (80-96); MONOCYTES # (AUTO) 0.5 K/uL (0.1-1.30); MONOCYTES % (AUTO) 4.2 % (2.0-12.0); NEUTROPHILS # (AUTO) 9.6 K/uL (1.8-8.9); NEUTROPHILS % (AUTO) 87.6 % (43.0-81.0); PLATELET COUNT (AUTO) 101 K/uL (150-450); RED BLOOD CELL COUNT(AUTO) 3.79 MIL/uL (4.5-6.0)
--- NOTE | 2022-02-11 14:29 | NUR ---
ICU/RN NO RESIDUAL NOTED, TF TO BE INCREASED TO 40ML/HR
--- NOTE | 2022-02-11 15:43 | NUR ---
RT PER DR. MARTINES SAID TO PUT THE ET-TUBE IN 1 TO 2 CM IN. NOW PATIENT ET- TUBE IS AT 24@ LIP. Addendum: 02/11/22 at 1545 by HOLLADN DURBIN RT Amended: Links added.
--- NOTE | 2022-02-11 18:28 | NUR ---
ICU/RN 100ML RESIDUAL NOTED. DNP CONRAD NOTIFIED, ORDER TO CONTINUE RUNNING NGT FEEDING UNTIL 250ML RESIDUAL OR MORE. TUBE FEEDING RESUMED.
--- NOTE | 2022-02-11 20:03 | NUR ---
RN NOTE RECEIVED PT ORALLY INTUBATED CONNECTED TO VENT. NO SIGNS OF DISTRESS NOTED. SEDATED WITH FENTANYL AND VERSED. ALAN PICC LINE PATENT AND INTACT, ON D5NS AT 60ML/HR. OGT IN PLACE AND PATENT, AUSCULTATED FOR PLACEMENT, NOTED WITH GASTRIC RESIDUALS OF 300ML. HELD GT FEEDING. KEPT HOB ELEVATED. COOLING BLANKET IN PLACE, T 100.0. FC DRAINING BY GRAVITY. ALL SAFETY MEASURES IN PLACE PER PROTOCOL. WILL CONTINUE TO MONITOR.
[2022-02-11] MEDS: ENOXAPARIN SODIUM 40 MG/0.4 ML DISP.SYRIN SQ SCH (20:58)
[2022-02-11] MEDS: MIDAZOLAM HCL 100 MG in IV NS 0.9% 80 ML IV PRN (21:05)
[2022-02-12] VITALS (44 sets, daily range): BP systolic 118–159; BP diastolic 67–93
--- NOTE | 2022-02-12 00:10 | NUR ---
RN NOTE STILL WITH HIGH RESIDUAL >250ML, GT FEEDING KEPT ON HOLD
--- NOTE | 2022-02-12 02:58 | NUR ---
RN NOTE FEEDING KEPT ON HOLD. WITH STILL >250ML GT RESIDUALS. NOTIFIED SUPERINTENDENT NONSELLING HEMPHILL. PT ALLERGIC TO ONDANSETRON AND METOCLOPRAMIDE. SUPERINTENDENT NONSELLING ORDER TO DO KUB XRAY. WILL CONTINUE TO MONITOR.
[2022-02-12 04:28] LABS: CALCIUM, SERUM 8.7 mg/dL (8.5-10.1); CREATININE 1.2 mg/dL (0.6-1.3); POTASSIUM 4.6 mmol/L (3.5-5.1)
[2022-02-12 04:35] LABS: BASOPHILS % (AUTO) 0.3 % (0.0-2.0); EOSINOPHILS % (AUTO) 0.3 % (0.0-6.0); HEMATOCRIT 34 % (39-51); HEMOGLOBIN 11.1 g/dL (13.5-17.5); LYMPHOCYTES # (AUTO) 0.9 K/uL (0.8-4.8); LYMPHOCYTES % (AUTO) 8.3 % (20.0-44.0); MEAN CORPUSCULAR HGB CONC 32 g/dl (31.0-36.0); MEAN CORPUSCULAR VOLUME 91 fL (80-96); MONOCYTES # (AUTO) 0.5 K/uL (0.1-1.30); MONOCYTES % (AUTO) 4.3 % (2.0-12.0); NEUTROPHILS # (AUTO) 9.5 K/uL (1.8-8.9); NEUTROPHILS % (AUTO) 86.8 % (43.0-81.0); PLATELET COUNT (AUTO) 83 K/uL (150-450); RED BLOOD CELL COUNT(AUTO) 3.77 MIL/uL (4.5-6.0)
[2022-02-12 04:41] LABS: MAGNESIUM 2.4 mg/dL (1.8-2.4); PHOSPHORUS 4.3 mg/dL (2.5-4.9)
[2022-02-12] MEDS: PIPERACILLIN /TAZOBACTAM 3.375 G in IV D5W 100 ML IV SCH (05:19)
[2022-02-12] MEDS: IV D5/ 0.9% NACL 1,000 ML IV PRN ×2 (05:22→23:16)
[2022-02-12 06:46] LABS: BAND % (MANUAL) 16 % (0.0-5.0); EOSINOPHILS % (MANUAL) 3 % (0-4); LYMPHOCYTES % (MANUAL) 9 % (16-48); MONOCYTES % (MANUAL) 5 % (0-11.0); MYELOCYTES % 1 % (0-0); NEUTROPHILS % (MANUAL) 66 (42-76)
[2022-02-12 07:24] LABS: BAND % (MANUAL) 16 % (0.0-5.0); LYMPHOCYTES % (MANUAL) 9 % (16-48); MONOCYTES % (MANUAL) 5 % (0-11.0); NEUTROPHILS % (MANUAL) 66 (42-76)
[2022-02-12 07:25] LABS: EOSINOPHILS % (MANUAL) 3 % (0-4)
--- NOTE | 2022-02-12 07:52 | NUR ---
RN NOTE PT GT RESIDUAL REMAIN HIGH AT 250ML. NO S/SX OF ASPIRATION NOTED. KEPT HOB ELEVATED. GT FEEDING KEPT ON HOLD. KUB XRAY STILL PENDING. PT TOLERATES VENT SETTINGS. O2 SAT AT 97%/ NO DISTRESS NOTED. REMAIN SEDATED WITH VERSED AND FENTANYL. BOTH INFUSING WELL, NO SIGNS OF INFILTRATION. OFF WITH COOLING BLANKET. T 98.3. BP WNL. ENDORSED TO AM SHIFT NURSE FOR POLINA.
[2022-02-12 08:49] LABS: ABG BASE EXCESS -0.3 mmol/L; ABG OXYGEN SATURATION 92.1 % (92.0-98.5); ABG PCO2 59.7 mmHg (35.0-45.0); ABG PO2 65.6 mmHg (75.0-100.0); AaDO2 442.1 mmHg; COHb 0.3 % (0.5-1.5); O2Hb 91.8 % (94.0-97.0); PEEP,BG 16 cm H2O; SITE, ABG Other; VT, ABG 525 mL
[2022-02-12] MEDS ORDERED: PANTOPRAZOLE 40 MG/PACK PACK GT SCH (09:00)
[2022-02-12] MEDS: VANCOMYCIN 1 GM in IV D5W 250 ML IV SCH ×2 (10:13→20:40)
[2022-02-12] MEDS: CEFEPIME 2 GM in IV D5W 100 ML IV SCH ×3 (10:14→23:22)
[2022-02-12] MEDS: PANTOPRAZOLE 40 MG/PACK PACK NG SCH (10:15)
[2022-02-12] MEDS: FENTANYL CITRAT IV 2,500 MCG in IV NS 0.9% 200 ML IV PRN (10:19)
--- NOTE | 2022-02-12 12:00 | NUR ---
rehab services aide SW followed up with nurse to inquire if pt. is awake. Nurse reported that pt. is orally intubated and is currently asleep. SW will follow up once pt. is awake and alert.
[2022-02-12] MEDS: MIDAZOLAM HCL 100 MG in IV NS 0.9% 80 ML IV PRN (15:23)
--- NOTE | 2022-02-12 15:25 | NUR ---
FIO2 INCREASED FROM 80% TO 100% DUE TO 90% SPO2 Addendum: 02/12/22 at 1525 by JULISSA HEREDIA RT Amended: Links added.
[2022-02-12] MEDS: ACETAMINOPHEN 650 MG/SUPP.RECT RC PRN ×2 (15:26→21:12)
[2022-02-12] MEDS: MUPIROCIN OINT 2% 22 GM TUBE NS SCH ×2 (16:10→20:42)
--- NOTE | 2022-02-12 19:39 | NUR ---
RECEIVED THE PATIENT FROM KATHIE VALADEZ , PATIENT IS SEDATED ON A VERSED AND FENTANYL DRIP, TOLERATING HIS TREATMENT, ATTEMPT TO REDUCE PROPOFOL DRIP WAS UNSUCCESSFUL,PATIENT PROVIDED HYGIENE CASE PER PROTOCOL ALL ORDERED MEDICATIONS PROVIDE (SEE eMAR). BEDOYA CATHETER AND DRAINING TOBY COLOR URINE. SEE REQUIRED ASSESSMENT FOR ADDITIONAL INFORMATION. BEDSIDE REPORT GIVEN TO THE ONCOMING NURSE PATIENT UIS STABLE ON THE ED IN THE LOWEST POSITION, CALL RAJPUT WITHIN REACH
--- NOTE | 2022-02-12 20:30 | NUR ---
RN NOTE RECEIVED PT STILL SEDATED WITH VERSED AND FENTANYL. ON VENT WITH FIO2 OF 100%. O2 SAT AT 94%. NO SIGNS OF DISTRESS. NOTED WITH 250ML GASTRIC GREENISH RESIDUALS. OFF FEEDING. NOTIFIED MACHINE STACKER SUPERVISING LIBRARIAN HEMPHILL WITH NO NEW ORDERS MADE. WILL CONTINUE TO MONITOR.
--- NOTE | 2022-02-12 21:15 | NUR ---
RN NOTE NOTED WITH T 101.2. TYLENOL GIVEN RECTALLY. COOLING MEASURES APPLIED, COOLING BLANKET ON. WILL CONTINUE TO MONITOR.
[2022-02-12] MEDS: ENOXAPARIN SODIUM 40 MG/0.4 ML DISP.SYRIN SQ SCH (21:17)
[2022-02-13] VITALS (35 sets, daily range): BP systolic 118–159; BP diastolic 65–84
[2022-02-13 04:05] LABS: BASOPHILS # (AUTO) 0.1 K/uL (0.0-0.2); BASOPHILS % (AUTO) 0.4 % (0.0-2.0); EOSINOPHILS % (AUTO) 0.1 % (0.0-6.0); HEMATOCRIT 35 % (39-51); LYMPHOCYTES # (AUTO) 1.1 K/uL (0.8-4.8); MEAN CORPUSCULAR HGB CONC 32 g/dl (31.0-36.0); MEAN CORPUSCULAR VOLUME 93 fL (80-96); MONOCYTES # (AUTO) 0.7 K/uL (0.1-1.30); MONOCYTES % (AUTO) 3.9 % (2.0-12.0); NEUTROPHILS # (AUTO) 16.6 K/uL (1.8-8.9); NEUTROPHILS % (AUTO) 89.6 % (43.0-81.0); RED BLOOD CELL COUNT(AUTO) 3.74 MIL/uL (4.5-6.0); WHITE BLOOD COUNT (AUTO) 18.6 K/uL (4.3-11.0)
--- NOTE | 2022-02-13 04:19 | NUR ---
RN NOTE PT GT RESIDUAL 150ML. KEPT FEEDING ON HOLD.
[2022-02-13 04:25] LABS: MAGNESIUM 2.8 mg/dL (1.8-2.4); PHOSPHORUS 5.6 mg/dL (2.5-4.9)
[2022-02-13 04:44] LABS: PLATELET COUNT (AUTO) 47 K/uL (150-450)
[2022-02-13 04:51] LABS: CALCIUM, SERUM 8.8 mg/dL (8.5-10.1); CREATININE 1.5 mg/dL (0.6-1.3); POTASSIUM 5.6 mmol/L (3.5-5.1)
--- NOTE | 2022-02-13 05:21 | NUR ---
RN NOTE PLATELETS 47. NO S/SX OF BLEEDING NOTED. NOTIFIED STRAPPER OPERATOR HEMPHILL. ORDERED TO HOLD LOVENOX TODAY. WILL ENDORSE TO AM SHIFT NURSE.
[2022-02-13 06:13] LABS: NEUTROPHILS % (MANUAL) 74 (42-76)
[2022-02-13 06:14] LABS: BAND % (MANUAL) 13 % (0.0-5.0); BASOPHILS % (MANUAL) 0 % (0.0-2.0); EOSINOPHILS % (MANUAL) 0 % (0-4); LYMPHOCYTES % (MANUAL) 8 % (16-48); MONOCYTES % (MANUAL) 5 % (0-11.0)
--- NOTE | 2022-02-13 07:02 | NUR ---
WOUND CARE CONSULT: PT PRESENTS WITH GENERALIZED EDEMA, SOME AREAS OF DISCOLORATION AND SCARRING TO FEET AND SACRAL INTACT DEEP TISSUE INJURY. PT NOTED TO HAVE CO-MORBIDITIES INCLUDING ACUTE RESPIRATORY FAILURE, RECENT OVERDOSE, HISTORY OF HOMELESSNESS AND INABILITY TO TOLERATE NG TUBE FEEDINGS. DUE TO ABOVE CO-MORBIDITIES, FURTHER SKIN BREAKDOWN MAY BE UNAVOIDABLE. RECOMMENDATIONS MADE FOR SKIN PROTECTION.DISCUSSED WITH NURSING STAFF. MD IN AGREEMENT WITH PLAN OF CARE.
--- NOTE | 2022-02-13 07:15 | NUR ---
WANT AD CLERK Bedside report taken from [facility] nurse Jojo VALADEZ. pt sedated and intubated. pt unarousable, does not follow commands, does not opens eyes, perrla, does not moves bue or ble. pt on ac vent setting with fio2 100%, pt tolerating well. spo2 100%, josephine. lung sounds course and diminished. pt sinus tachycardia on monitor, bue and ble pulses present. pt has ngt, npo at this time tube feedings held d/t high residuals, will reassess, bowel sounds present, abdomen soft to touch. pt has benavides intact and draining clear ally color urine. skin check done wounds noted see flowsheet. all lines traced. all drips verified. safety measures in place. will continue to monitor.
--- NOTE | 2022-02-13 07:25 | NUR ---
RN NOTE GT FEEDING REMAIN ON HOLD. STILL WITH 150ML GASTRIC RESIDUALS. CONTINUE WITH IVFLUIDS D5NS AT 60ML/HR. SEDATED WITH VERSED AND FENTANYL. NO DISTRESS NOTED. WOUND CONSULT DONE FOR SACRAL DTI. TURNING AND REPOSITIONING. TMAX 101.2. LATEST TEMP 99.8 REMAIN ON COOLING BLANKET. ENDORSED TO AM SHIFT NURSE FOR POLINA.
[2022-02-13] MEDS ORDERED: Z GUARD REMEDY 4 OZ OINT TP PRN (07:30)
[2022-02-13 07:46] LABS: ABG OXYGEN SATURATION 96.7 % (92.0-98.5); ABG PCO2 84.8 mmHg (35.0-45.0); ABG PH 7.133 (7.350-7.450); ABG PO2 96.4 mmHg (75.0-100.0); AaDO2 531.8 mmHg; COHb 0.4 % (0.5-1.5); MetHb 0.2 % (0.0-1.5); O2Hb 96.1 % (94.0-97.0); PEEP,BG 16 cm H2O; SITE, ABG Right Radial; VT, ABG 525 mL
[2022-02-13] MEDS: CEFEPIME 2 GM in IV D5W 100 ML IV SCH ×2 (08:32→15:58)
[2022-02-13] MEDS: VANCOMYCIN 1 GM in IV D5W 250 ML IV SCH ×2 (08:33→21:54)
[2022-02-13] MEDS: PANTOPRAZOLE 40 MG/PACK PACK NG SCH (08:34)
[2022-02-13] MEDS: MUPIROCIN OINT 2% 22 GM TUBE NS SCH ×2 (08:35→20:58)
--- NOTE | 2022-02-13 08:50 | NUR ---
HIGH PRESSURE KETTLE OPERATOR Dr Washington at bedside assessing pt and updated on pt status. md aware of pt ABG results and aware of pt labored breathing. verbal orders to be entered for 1 amp bicarb, d5w + 3 amp bicarb drip and abg scheduled for [address] [place]. no other orders at this time. charge nurse Eleonora VALADEZ aware.
--- NOTE | 2022-02-13 09:00 | NUR ---
VACUUM EVAPORATION OPERATOR PICC nurse at bedside midline placed. ok to use midline. picc line removal pending.
[2022-02-13] MEDS ORDERED: SODIUM BICARBONATE SYR 50 MEQ/50 ML DISP.SYRIN IV STA (09:16)
[2022-02-13] MEDS: Sodium Bicarbonate 150 MEQ in IV D5W 1,000 ML IV SCH (09:53)
--- NOTE | 2022-02-13 10:10 | NUR ---
LABORER BITUMINOUS PAVING ALAN PICC line removed per Dr Washington, picc tip to be cultured and sent to lab. lab order for tip culture entered per .
--- NOTE | 2022-02-13 10:22 | NUR ---
DETONATOR ASSEMBLER Lab called for specimen pickup.
--- NOTE | 2022-02-13 10:36 | NUR ---
DIRECTOR INFORMATION Tyrel Coleman REGULATOR OPERATOR at bedside assessing pt and updated on pt status. new orders pending for paralytic per REGULATOR OPERATOR , charge nurse Eleonora VALADEZ aware. no other orders at this time.
--- NOTE | 2022-02-13 12:48 | NUR ---
ET tube adjustment et tube 2 cm push in per dr. woodruff. et tube adjusted from 24 cm to 26 cm alex. Addendum: 02/13/22 at 1249 by JULISSA HEREDIA RT Amended: Links added.
--- NOTE | 2022-02-13 13:00 | NUR ---
STRATEGIC PLANNING DIRECTOR Baseline TOF level 5 - 4 twitches, Vecuronium drip started per tammy kacy order. Dimitry RT aware abg to be drawn at 1400.
[2022-02-13] MEDS: FENTANYL CITRAT IV 2,500 MCG in IV NS 0.9% 200 ML IV PRN (13:06)
[2022-02-13] MEDS: VECURONIUM 50 MG in IV NS 0.9% 50 ML IV PRN (13:09)
[2022-02-13 14:15] LABS: ABG BASE EXCESS -0.4 mmol/L; ABG OXYGEN SATURATION 98.3 % (92.0-98.5); ABG PCO2 55.2 mmHg (35.0-45.0); ABG PH 7.303 (7.350-7.450); ABG PO2 121.2 mmHg (75.0-100.0); AaDO2 536.6 mmHg; MetHb 0.2 % (0.0-1.5); O2Hb 98.1 % (94.0-97.0); PEEP,BG 16 cm H2O; SITE, ABG Right Radial; VT, ABG 525 mL
--- NOTE | 2022-02-13 14:20 | NUR ---
DITTO MACHINE OPERATOR Dr Washington and Tyrel Griffin made aware of pt ABG per request.
--- NOTE | 2022-02-13 14:34 | NUR ---
fio2 titration fio2 decreased from 100% to 70% due to 121 pao2. Addendum: 02/13/22 at 1435 by JULISSA HEREDIA RT Amended: Links added.
[2022-02-13] MEDS ORDERED: FUROSEMIDE 20 MG/2 ML VIAL IV ONE (15:00)
--- NOTE | 2022-02-13 15:13 | NUR ---
FABRIC NORMALIZER Tube feeding restarted , jevity at 10 ml/hr per Tyrel Griffin INVESTIGATIONS CONSULTANT and urine specimen collected, lab called for crab picker.
[2022-02-13 16:17] LABS: BILIRUBIN,URINE NEGATIVE (NEGATIVE); COLOR,URINE YELLOW (YELLOW); LEUKOCYTE ESTERASE ,URINE NEGATIVE (NEGATIVE); NITRITE, URINE NEGATIVE (NEGATIVE); PROTEIN,URINE 1+ mg/dl (NEGATIVE); UGLUCOSE NEGATIVE (NEGATIVE); UROBILINOGEN,URINE 0.2 EU/dL (0.2)
[2022-02-13] MEDS: MIDAZOLAM HCL 100 MG in IV NS 0.9% 80 ML IV PRN (17:24)
[2022-02-13] MEDS ORDERED: SODIUM POLYSTYRENE SULF. PWD 15 GM UDC PO ONE (17:30)
[2022-02-13 18:01] LABS: BACTERIA,URINE RARE /HPF (None Seen); RBC,URINE 51-80 /HPF (0-2); SQUAMOUS EPITHELIAL CELL,UR 0-2 /HPF (None Seen); WBC,URINE 0-2 /HPF (0-3)
[2022-02-13] MEDS: ACETAMINOPHEN 325 MG TABLET PO PRN (18:02)
[2022-02-13 18:03] LABS: URINE AMORPHOUS URATE Few /HPF (None Seen)
--- NOTE | 2022-02-13 19:19 | NUR ---
CASINO SHIFT MANAGER Bedside report given to noc nurse farhana VALADEZ. Pt sedated, intubated and paralyzed. all lines traced. all drips verified. safety meaures in place. pt clean and dry. no signs of acute distress at this time. TOF rate and twitches verified with noc nurse.
--- NOTE | 2022-02-13 19:44 | NUR ---
PT RCVD ORALLY INTUBATED W ETT 7.5 SECURED @ 26 CM LIP LINE. PT IS SEDATED VENT PLUGGED INTO RED OUTLET. VENT ALARMS ON AND AUDIBLE. AMBU BAG @BEDSIDE. NO RESPIRATORY DISTRESS NOTED AT THIS TIME. WILL CONTINUE TO MONITOR T/O SHIFT.
--- NOTE | 2022-02-13 21:19 | NUR ---
RN NOTE PT ON VENT. SEDATED WITH VERSED AND FENTANYL. ON VECURONIUM AT 0.6MCH/KG/MIN, 4 TWITCHES ON LEVEL 5. NOTED FEBRILE, COOLING BLANKET ON, COLD BATH GIVEN. SINUS TACH ON TELE WITH HR 115. NGT IN PLACE AND PATENT, ON JEVITY 1.2 AT 10ML/HR, WITH 10 ML RESIDUALS. BEDOYA CATH IN PLACE. WILL CONTINUE TO MONITOR.
--- NOTE | 2022-02-13 23:52 | NUR ---
RN NOTE NO GT RESIDUALS, INCREASED RATE TO 20ML/HR. GOAL RATE 55ML/HR
[2022-02-14] VITALS (19 sets, daily range): BP systolic 136–154; BP diastolic 68–78
[2022-02-14] MEDS: CEFEPIME 2 GM in IV D5W 100 ML IV SCH ×3 (00:28→16:17)
[2022-02-14] MEDS: Sodium Bicarbonate 150 MEQ in IV D5W 1,000 ML IV SCH ×2 (00:56→16:33)
[2022-02-14] MEDS ORDERED: VECURONIUM 10 MG VIAL ONE (03:04)
[2022-02-14] MEDS: VECURONIUM 50 MG in IV NS 0.9% 50 ML IV PRN ×2 (03:21→09:28)
[2022-02-14] MEDS ORDERED: DOSE PER PHARMACY MICAFUNGIN 1 EA XX PRN (04:30)
[2022-02-14] MEDS ORDERED: MICAFUNGIN SODIUM 100 MG in IV NS 0.9% 100 ML IV ONE (05:00)
[2022-02-14] MEDS ORDERED: MICAFUNGIN SODIUM 100 MG VIAL IV ONE (05:31)
[2022-02-14 06:17] LABS: BASOPHILS % (AUTO) 0.3 % (0.0-2.0); EOSINOPHILS % (AUTO) 0.2 % (0.0-6.0); HEMATOCRIT 34 % (39-51); HEMOGLOBIN 10.6 g/dL (13.5-17.5); LYMPHOCYTES # (AUTO) 1.1 K/uL (0.8-4.8); LYMPHOCYTES % (AUTO) 7.9 % (20.0-44.0); MEAN CORPUSCULAR HGB CONC 32 g/dl (31.0-36.0); MEAN CORPUSCULAR VOLUME 92 fL (80-96); MONOCYTES # (AUTO) 0.4 K/uL (0.1-1.30); MONOCYTES % (AUTO) 3.1 % (2.0-12.0); NEUTROPHILS # (AUTO) 12.2 K/uL (1.8-8.9); NEUTROPHILS % (AUTO) 88.5 % (43.0-81.0); RED BLOOD CELL COUNT(AUTO) 3.66 MIL/uL (4.5-6.0); WHITE BLOOD COUNT (AUTO) 13.8 K/uL (4.3-11.0)
[2022-02-14 06:30] LABS: PLATELET COUNT (AUTO) 45 K/uL (150-450)
[2022-02-14 06:34] LABS: MAGNESIUM 2.5 mg/dL (1.8-2.4); PHOSPHORUS 2.9 mg/dL (2.5-4.9)
[2022-02-14] MEDS: IV NS 0.9% 250 ML IV PRN (06:46)
--- NOTE | 2022-02-14 07:00 | NUR ---
TIRE BUILDING SUPERVISOR Bedside report taken from [facility] nurse Jojo VALADEZ. pt sedated, paralyzed and intubated. pt unarousable, does not follow commands, does not opens eyes, perrla, does not moves bue or ble. pt on ac vent setting with fio2 70%, pt tolerating spo2 91%, josephine. lung sounds diminished. pt sinus tachycardia on monitor, bue and ble pulses present. pt has ngt, jevity @10 ml/hr tolerating well, bowel sounds present, abdomen soft to touch. pt has benavides intact and draining clear ally color urine. skin check done wounds noted see flowsheet. all lines traced. all drips verified. safety measures in place. will continue to monitor.
--- NOTE | 2022-02-14 07:23 | NUR ---
RN NOTE PT REMAIN SEDATED AND PARALYZED, NO SIGNS OF DISTRESS. IV LINES PATENT AND INTACT. ALL DRIPS INFUSING WELL. WITH NO S/SX OF INFILTRATION. REMAIN ON COOLING BLANKET. ENDORSED TO DORIAN GARZA SHIFT NURSE FOR POLINA
[2022-02-14] MEDS: VANCOMYCIN 1 GM in IV D5W 250 ML IV SCH (08:26)
[2022-02-14] MEDS: PANTOPRAZOLE 40 MG/PACK PACK NG SCH (08:26)
[2022-02-14] MEDS: MUPIROCIN OINT 2% 22 GM TUBE NS SCH (08:28)
[2022-02-14 08:41] LABS: ABG BASE EXCESS 3.7 mmol/L; ABG OXYGEN SATURATION 92.7 % (92.0-98.5); ABG PCO2 85.9 mmHg (35.0-45.0); ABG PH 7.213 (7.350-7.450); ABG PO2 71.8 mmHg (75.0-100.0); COHb 0.4 % (0.5-1.5); MetHb 0.3 % (0.0-1.5); O2Hb 92.1 % (94.0-97.0); SITE, ABG Left Radial; VENT MODE, BG AC 30 525 70% +16
[2022-02-14 09:02] LABS: CALCIUM, SERUM 8.9 mg/dL (8.5-10.1); CREATININE 1.3 mg/dL (0.6-1.3)
[2022-02-14 09:10] LABS: POTASSIUM 4.2 mmol/L (3.5-5.1)
--- NOTE | 2022-02-14 09:40 | NUR ---
REGIONAL SALES MANAGER lab called for critical na 157, Tyrel Griffin messaged, no new orders. charge nurse Eleonora VALADEZ aware
--- NOTE | 2022-02-14 10:00 | NUR ---
UNISHEAR OPERATOR Tyrel Griffin at bedside assessing pt and updated on pt status. MD aware that pt na 157 , verbal order for free water flushes 250 ml q6 to be entered per md. no other orders at this time. vitals stable. will continue to monitor.
[2022-02-14 13:55] LABS: BAND % (MANUAL) 17 % (0.0-5.0); LYMPHOCYTES % (MANUAL) 4 % (16-48); METAMYELOCYTES % 1 % (0-0); MONOCYTES % (MANUAL) 7 % (0-11.0); NEUTROPHILS % (MANUAL) 71 (42-76)
[2022-02-14] MEDS: FENTANYL CITRAT IV 2,500 MCG in IV NS 0.9% 200 ML IV PRN (14:07)
[2022-02-14] MEDS: ACETAMINOPHEN 325 MG TABLET PO PRN (14:12)
[2022-02-14] MEDS: MIDAZOLAM HCL 100 MG in IV NS 0.9% 80 ML IV PRN (16:34)
--- NOTE | 2022-02-14 17:45 | NUR ---
AIRCRAFT PARTS ASSEMBLER Pt starts to riley down hr decreased from 110 to Hr 40s, pulse check done, pt in PEA, code blue called cpr initiated with Tim RT. charge nurse Kadie, pharmacy, RT x4, RN x4 ER doctor Niles Frost MD running code at bedside. for details please see Code Blue sheet.
[2022-02-14] MEDS ORDERED: SODIUM BICARBONATE SYR 50 MEQ/50 ML DISP.SYRIN IV ONE (18:00)
[2022-02-14] MEDS ORDERED: EPINEPHRINE (1:10,000) SYRINGE 1 MG/10 ML DISP.SYRIN IVP ONE (18:00)
[2022-02-14] MEDS ORDERED: Magnesium 1 GM/2 ML VIAL IV ONE (18:00)
--- NOTE | 2022-02-14 18:01 | NUR ---
FARMER TREE FRUIT AND NUT CROPS Code blue stopped. pt has no pulse. time of 1800. Pt mother Ann Marie Villa called by charge nurse Kadie VALADEZ, no answer, message left. Dr Tyrel Griffin notified of pt .
--- NOTE | 2022-02-14 18:10 | NUR ---
ADULT DAYCARE COORDINATOR [facility] was called, pt reported to asset protection representative Dariela Josh, based on pt information, pt is [facility] case # [id number], all lines and tubes to remain in place, pt to be placed in morgue and [facility] to picking machine operator body in a couple of days per asset protection representative. charge nurse Eleonora VALADEZ aware. nursing casework supervisor casie VALADEZ aware.
--- NOTE | 2022-02-14 18:19 | NUR ---
AIRCRAFT QUALITY CONTROL INSPECTOR [employer] called spoke to sales representative gas service Tiffanie, based on pt information, pt not candidate for donation. body can be released per [employer], reference number [id number].
--- NOTE | 2022-02-14 18:48 | NUR ---
CAPTAIN/AIRLINE PILOT Post mortem care done. pt tagged and placed in body bag, all lines, tubes, ivs and catheters remain in place for [facility]. pt has no belongings at bedside all belongings sent home with mother on 02/09/2022 @ 1900 see belonging sheet. Charge nurse Kadie VALADEZ spoke to pt mother Ann Marie and informed mother that pt is . remainder of versed drip 70 ml and fentanyl drip 150 ml wasted with Allyssa VALADEZ and discarded, narcotic forms completed.
[2022-02-14] MEDS ORDERED: VANCOMYCIN 0.75 GM in IV D5W 250 ML IV SCH (21:00)
[2022-02-15] MEDS ORDERED: MICAFUNGIN SODIUM 100 MG in IV NS 0.9% 100 ML IV SCH (08:00)
== END 2022-02-15 01:09 | DRG 817 ==
LOC: ER 21:21 → TRANSITION 02-07 05:37 → TELE-TD 02-07 08:40 → ICU 02-07 19:04
PROVIDERS: ADMIT Internal Medicine; ATTEND Nurse Practitioner Acute Care
PROC: 5A1955Z Respiratory Ventilation, Greater than 96 Consecutive Hours (ICD-10-PCS; principal; 2022-02-07)
PROC: 05H933Z Insertion of Infusion Device into Right Brachial Vein, Percutaneous Approach (ICD-10-PCS; 2022-02-07)
PROC: 0BH18EZ Insertion of Endotracheal Airway into Trachea, Via Natural or Artificial Opening Endoscopic (ICD-10-PCS; 2022-02-08)
PROC: 05HA33Z Insertion of Infusion Device into Left Brachial Vein, Percutaneous Approach (ICD-10-PCS; 2022-02-13)
PROC: 5A2204Z Restoration of Cardiac Rhythm, Single (ICD-10-PCS; 2022-02-14)
DX: T42.6X2A Poisoning by other antiepileptic and sedative-hypnotic drugs, intentional self-harm, initial encounter (principal); R65.21 Severe sepsis with septic shock; N17.0 Acute kidney failure with tubular necrosis; J69.0 Pneumonitis due to inhalation of food and vomit; G92.9 Unspecified toxic encephalopathy; A41.9 Sepsis, unspecified organism; J96.02 Acute respiratory failure with hypercapnia; J80 Acute respiratory distress syndrome; R56.9 Unspecified convulsions; J96.01 Acute respiratory failure with hypoxia; Y92.89 Other specified places as the place of occurrence of the external cause; Z59.00 Homelessness unspecified; Z20.822 Contact with and (suspected) exposure to COVID-19; Z22.322 Carrier or suspected carrier of Methicillin resistant Staphylococcus aureus; F12.90 Cannabis use, unspecified, uncomplicated; F19.10 Other psychoactive substance abuse, uncomplicated; F39 Unspecified mood [affective] disorder; Z91.51 Personal history of suicidal behavior; D69.6 Thrombocytopenia, unspecified; E78.1 Pure hyperglyceridemia; R33.9 Retention of urine, unspecified; Y95 Nosocomial condition; E87.0 Hyperosmolality and hypernatremia; E16.2 Hypoglycemia, unspecified; T41.295A Adverse effect of other general anesthetics, initial encounter
CPT/HCPCS: 31720; 36410; 36415; 36600; 71045-TC; 74018; 80048-TC; 80053-TC; 80076-TC; 80202-TC; 81001; 82550-TC; 82553; 82803-TC; 82962-TC; 83605-TC; 83735-TC; 84100-TC; 84478-TC; 85025-TC; 86704; 86803; 87040-TC; 87070-TC; 87081-TC; 87186-TC; 87340; 87806; 94002-TC; 94003-TC; 94640-TC; 94760-TC; 94799-TC; C9113; C9803; G0378; G0480; J0171; J0330; J0692; J1650; J1940; J2060; J2248; J2250; J2270; J2405; J2543; J3010; J3370; J3475; J3490; J7030; J7040; J7042; J7050; J7060; J7070